=== PATIENT | male | born 1980 ===

== ENCOUNTER 2022-03-27 14:23 | Emergency (ER) | payer SELFPAY ==
[2022-03-27 16:18] VITALS: BP 156/86
== END 2022-03-27 17:15 | disposition left against medical advice (07) ==
LOC: ED 14:23
DX: K04.7 Periapical abscess without sinus (principal); Z53.21 Procedure and treatment not carried out due to patient leaving prior to being seen by health care provider

== ENCOUNTER 2022-05-28 12:08 | Emergency (ER) | payer SELFPAY ==
--- NOTE | 2022-05-28 17:12 | Emergency Department Report ---
HPI - General Chief Complaint: Headache Time Seen by Provider: 05/28/22 16:52 - HPI HPI: Room 42 Patient is a 41-year-old male present with a chief complaint of headache. Patient states he came to contact with a coworker who tested positive for COVID yesterday. Patient states today this morning he developed a headache and nausea without vomiting. Patient denies history of fever. Patient admits to nasal congestion for the past 3 days prior to contact with a coworker. Patient also states he has had diarrhea for 1 month. ED Past Medical Hx - Past Medical History Previous Medical History?: No Hx Hypertension: Yes - Surgical History Past Surgical History?: No - Family History Family history: no significant - Social History Smoking Status: Never Smoker Substance Use Type: Alcohol (Occasional) - Medications Home Medications: Home Medications Medication Instructions Recorded Confirmed Last Taken Type Diphenoxylate/Atropine [Lomotil] 2 tab PO QID PRN #20 05/28/22 Unknown Rx ED Review of Systems ROS: Stated complaint: NAUSEA/HEADACHE/COVID EXPOSURE Other details as noted in HPI Constitutional: denies: fever Eyes: denies: eye pain ENT: denies: throat pain Respiratory: no symptoms reported Cardiovascular: denies: chest pain Endocrine: no symptoms reported Gastrointestinal: nausea, diarrhea. denies: vomiting Genitourinary: denies: dysuria Musculoskeletal: denies: back pain Neurological: headache Physical Exam - Physical Exam Vital Signs: Vital Signs 05/28/22 14:03 Temperature 98.9 F Pulse Rate 51 L Respiratory 18 Rate Blood Pressure 150/84 [Left] O2 Sat by Pulse 99 Oximetry Physical Exam: GENERAL: The patient is well-developed well-nourished male sitting in chair not appearing to be in acute distress. [] HEENT: Normocephalic. Atraumatic. Extraocular motions are intact. Patient has moist mucous membranes. NECK: Supple. No meningitic signs are noted. Trachea midline CHEST/LUNGS: Clear to auscultation. There is no respiratory distress noted. HEART/CARDIOVASCULAR: Regular. There is no tachycardia. There is no gallop rub or murmur. ABDOMEN: Abdomen is soft, nontender. Patient has normal bowel sounds. There is no abdominal distention. SKIN: There is no rash. There is no edema. There is no diaphoresis. NEURO: The patient is awake, alert, and oriented. The patient is cooperative. The patient has no focal neurologic deficits. The patient has normal speech. GCS 15. Cranial nerves II through XII grossly intact MUSCULOSKELETAL: There is no evidence of acute injury. ED Course Vital Signs 05/28/22 14:03 Temperature 98.9 F Pulse Rate 51 L Respiratory 18 Rate Blood Pressure 150/84 [Left] O2 Sat by Pulse 99 Oximetry ED Medical Decision Making - Lab Data Result diagrams: 05/28/22 18:12 - Radiology Data Radiology results: report reviewed (CT head), image reviewed (CT head) [facility] [address] [place] [address] Cat Scan Report Signed Patient: VICTOR HUGO HARPER MR#: [id number] : 1980 Acct:[id number] Age/Sex: 41 / M ADM Date: 05/28/22 Loc: ED Attending Dr: Ordering Physician: NABEEL PATTERSON MD Date of Service: 05/28/22 Procedure(s): CT head/brain wo con Accession Number(s): [id number] cc: NABEEL PATTERSON MD CT head/brain wo con INDICATION: Headache, nausea. TECHNIQUE: Routine CT head. All CT scans at this location are performed using CT dose reduction for ALARA by means of automated exposure control. COMPARISON: None. FINDINGS: Intracranial: Davis-white matter differentiation is maintained. No intracranial hemorrhage. No extra axial collection. No hydrocephalus. No herniation. Partial empty appearance of sella. Sinuses: Mucosal thickening in the left maxillary sinus. Paranasal sinuses and mastoid air cells are essentially clear. Orbits: Globes are intact. Calvarium: No acute fracture. IMPRESSION: 1. No acute intracranial abnormality. 2. Persistent appearance of sella. This can be seen in normal asymptomatic individuals. However, findings can be associated with pseudotumor cerebri. Correlate clinically. Signer Name: Carl Orellana MD Signed: 05/28/2022 5:58 PM Workstation Name: [id number] Transcribed By: SANTOSH Dictated By: Carl Orellana MD Electronically Authenticated By: Carl Orellana MD Signed Date/Time: 05/28/221757 DD/ 56 TD/TT: - Differential Diagnosis Intracranial mass, ICH, anxiety, Critical care attestation.: If time is entered above; I have spent that time in minutes in the direct care of this critically ill patient, excluding procedure time. ED Disposition Clinical Impression: Headache, Diarrhea Disposition: 01 HOME / SELF CARE / HOMELESS Is pt being admited?: No Does the pt Need Aspirin: No Condition: Stable Instructions: Diarrhea, Adult Additional Instructions: Return to the emergency department should you develop worsening symptoms, inability to tolerate food or liquids, high fever or any other concerns Prescriptions: Diphenoxylate/Atropine [Lomotil] 2 tab PO QID PRN #20 PRN Reason: Diarrhea Referrals: MARNIE ARIZMENDI MD [Primary Care Provider] - 3-5 Days DUKE RENTERIA MD [Staff Physician] - 3-5 Days (Dr. Renteria is a hospital unit coordinator. Please follow-up with him for further evaluation) Time of Disposition: 19:03
--- NOTE | 2022-05-28 18:02 | Cat Scan Report ---
CT head/brain wo con INDICATION: Headache, nausea. TECHNIQUE: Routine CT head. All CT scans at this location are performed using CT dose reduction for A ELIZABETH by means of automated exposure control. COMPARISON: None. FINDINGS: Intracranial: Davis-white matter differentiation is maintained. No intracranial hemorrhage. No extra a xial collection. No hydrocephalus. No herniation. Partial empty appearance of sella. Sinuses: Mucosal thickening in the left maxillary sinus. Paranasal sinuses and mastoid air cells are essentially clear. Orbits: Globes are intact. Calvarium: No acute fracture. IMPRESSION: 1. No acute intracranial abnormality. 2. Persistent appearance of sella. This can be seen in normal asymptomatic individuals. However, find ings can be associated with pseudotumor cerebri. Correlate clinically. Signer Name: Carl Orellana MD Signed: 05/28/2022 5:58 PM Workstation Name: [id number]
[2022-05-28 18:27] LABS: Basophils # (Auto) 0.1 K/mm3 (0.0-0.1); Basophils % (Auto) 0.7 % (0.0-1.8); Eosinophils # (Auto) 0.1 K/mm3 (0.0-0.4); Eosinophils % (Auto) 1.2 % (0.0-4.3); Lymphocytes # (Auto) 1.6 K/mm3 (1.2-5.4); Lymphocytes % (Auto) 19.3 % (13.4-35.0); Mean Corpuscular HGB Conc 33 % (32-34); Mean Corpuscular Volume 91 fl (84-94); Monocytes # (Auto) 0.5 K/mm3 (0.0-0.8); Monocytes % (Auto) 5.8 % (0.0-7.3); Platelet Count 209 K/mm3 (140-440); Red Blood Count 5.29 M/mm3 (3.65-5.03); Red Cell Distribution Width 14.8 % (13.2-15.2)
[2022-05-28 18:50] LABS: Alanine Aminotransferase 30 units/L (7-56); Albumin 4.5 g/dL (3.9-5); BUN/Creatinine Ratio 9; Blood Urea Nitrogen 9 mg/dL (9-20); Calcium 9.4 mg/dL (8.4-10.2); Hemolysis Index 19
[2022-05-28 19:25] VITALS: BP 152/89
== END 2022-05-28 19:26 | disposition home or self-care (01) ==
LOC: ED 12:08
DX: R51.9 Headache, unspecified (principal); R19.7 Diarrhea, unspecified; R09.89 Other specified symptoms and signs involving the circulatory and respiratory systems; I10 Essential (primary) hypertension; Z72.89 Other problems related to lifestyle; Z79.899 Other long term (current) drug therapy
CPT/HCPCS: 36415; 70450; 80053; 83690; 85025; 99284